=== PATIENT | male | born 2000 | race Caucasian/White ===

== ENCOUNTER 2021-09-25 02:39 | Emergency (ER) | payer OTHER ==
[2021-09-25 03:36] LABS: BLOOD UREA NITROGEN,BUN 24 mg/dL (7.0-18.0); CARBON DIOXIDE,CO2 27.2 mmol/L (21.0-32.0); CHLORIDE,CL 103 mmol/L (98-107); GLUCOSE RANDOM 103 mg/dL (74-106); LIPASE 80 U/L (73-393); POTASSIUM,K 4.5 mmol/L (3.5-5.1); SODIUM,NA 140 mmol/L (136-148)
[2021-09-25 04:03] VITALS: BP 147/77; PULSE 66
== END 2021-09-25 04:03 | disposition home or self-care (01) ==
LOC: MW.ED 02:39
DX: R55 Syncope and collapse (principal); Z88.0 Allergy status to penicillin
CPT/HCPCS: 36415; 71045; 71045-26; 80053; 83690; 83735; 84484; 85025; 93005; 99285-25

== ENCOUNTER 2024-07-19 13:07 | Emergency (ER) | payer SELFPAY ==
[2024-07-19] MEDS: diphenhydrAMINE 50 MG/ML SDV IVPUSH ONE (14:07)
[2024-07-19] MEDS: Sodium Chloride 0.9% 1,000 ML IV STA (14:07)
[2024-07-19] MEDS: Sodium Chloride 0.9% 2.5 ML Syringe FLUSH PRN (14:07)
[2024-07-19] MEDS: Sodium Chloride 0.9% 10 ML Syringe FLUSH PRN (14:07)
[2024-07-19] MEDS: Metoclopramide 10 MG/2 ML SDV IVPUSH ONE (14:07)
[2024-07-19] MEDS: Ondansetron 4 MG/2 ML SDV IVPUSH ONE ×2 (14:07→17:22)
[2024-07-19 14:10] LABS: BASOPHILS ABSOLUTE AUTO 0.04 K/uL (0.00-0.20); BASOPHILS PERCENT AUTO 0.5 % (0.0-1.0); EOSINOPHILS ABSOLUTE AUTO 0.25 K/uL (0.00-0.45); EOSINOPHILS PERCENT AUTO 2.8 % (0.0-6.0); HEMATOCRIT 46.4 % (42.0-52.0); HEMOGLOBIN 15.9 g/dL (14.0-18.0); IMMATURE GRAN ABSOLUTE AUTO 0.01 K/uL (0.00-0.05); IMMATURE GRAN PERCENT AUTO 0.1 % (0.0-0.4); LYMPHOCYTES ABSOLUTE AUTO 3.48 K/uL (1.00-4.80); LYMPHOCYTES PERCENT AUTO 39.2 % (24.0-44.0); MEAN CORPUSCULAR HEMOGLOBIN 29.5 pg (28.0-32.0); MEAN CORPUSCULAR HGB CONC 34.3 g/dL (32.0-36.0); MEAN CORPUSCULAR VOLUME 86.1 fL (83.0-99.0); MONOCYTES PERCENT AUTO 5.6 % (0.0-8.0); NEUTROPHILS ABSOLUTE AUTO 4.59 K/uL (1.80-7.70); NEUTROPHILS PERCENT AUTO 51.8 % (41.0-71.0); PLATELET COUNT,PLT 277 K/uL (150-400); RED BLOOD CELL COUNT 5.39 M/uL (4.52-5.90); WHITE BLOOD CELL COUNT,WBC 8.87 K/uL (3.9-11.3)
[2024-07-19] MEDS: Ketorolac 30 MG/ML SDV IVPUSH ONE (14:27)
[2024-07-19 14:49] LABS: A/G RATIO 1.3 (0.9-1.6); ALBUMIN 4.3 g/dL (3.4-5.0); BILIRUBIN TOTAL 0.6 mg/dL (0.2-1.0); CALCIUM 9.2 mg/dL (8.5-10.1); CARBON DIOXIDE,CO2 27.8 mmol/L (21.0-32.0); CREATININE 1.3 mg/dL (0.8-1.3); EST CRCL DRUG DOSING (CG) 96.17 mL/min; POTASSIUM,K 3.6 mmol/L (3.5-5.1); PROTEIN TOTAL,TP 7.7 g/dL (6.4-8.2)
[2024-07-19] MEDS: Iopamidol 755 MG/ML 500 ML Multipack Bottle IVPUSH STA (15:43)
[2024-07-19 18:52] VITALS: BP 113/62; PULSE 73
== END 2024-07-19 19:02 | disposition home or self-care (01) ==
LOC: MW.ED 13:07
DX: R07.9 Chest pain, unspecified (principal); R11.2 Nausea with vomiting, unspecified; R51.9 Headache, unspecified; Z88.0 Allergy status to penicillin; Z75.8 Other problems related to medical facilities and other health care
CPT/HCPCS: 36415; 70450; 70496; 70498; 80053; 82375; 83690; 84484; 85025; 93005; 96361; 96374; 96375; 96376; 99285; J1200; J1885; J2405; J2765; J3490; J7030; Q9967

== ENCOUNTER 2024-12-06 05:04 | Emergency (ER) | payer BC ==
[2024-12-06] MEDS: Benzocaine 20% Topical Spray UD MUCMEM ONE (05:18)
[2024-12-06] MEDS: Lidocaine 2% Viscous Solution 15 ML UD PO ONE (05:18)
[2024-12-06 06:21] VITALS: BP 150/100; PULSE 70
== END 2024-12-06 06:19 | disposition home or self-care (01) ==
LOC: MW.ED 05:04
DX: K08.89 Other specified disorders of teeth and supporting structures (principal); Z88.0 Allergy status to penicillin; Z79.899 Other long term (current) drug therapy; Z75.8 Other problems related to medical facilities and other health care
CPT/HCPCS: 99282; A9270; 99283

== ENCOUNTER 2025-08-15 16:34 | Emergency (ER) | payer BC ==
[2025-08-15] MEDS ORDERED: Sodium Chloride 0.9% 10 ML Syringe FLUSH PRN (17:19)
[2025-08-15] MEDS ORDERED: Sodium Chloride 0.9% 2.5 ML Syringe FLUSH PRN (17:19)
[2025-08-15 17:29] LABS: BASOPHILS ABSOLUTE AUTO 0.05 K/uL (0.00-0.20); BASOPHILS PERCENT AUTO 0.6 % (0.0-1.0); EOSINOPHILS ABSOLUTE AUTO 0.36 K/uL (0.00-0.45); EOSINOPHILS PERCENT AUTO 4.3 % (0.0-6.0); IMMATURE GRAN ABSOLUTE AUTO 0.02 K/uL (0.00-0.05); IMMATURE GRAN PERCENT AUTO 0.2 % (0.0-0.4); LYMPHOCYTES ABSOLUTE AUTO 2.36 K/uL (1.00-4.80); LYMPHOCYTES PERCENT AUTO 28.3 % (24.0-44.0); MEAN PLATELET VOLUME 9.1 fL (9.4-12.4); MONOCYTES ABSOLUTE AUTO 0.59 K/uL (0.00-0.80); MONOCYTES PERCENT AUTO 7.1 % (0.0-8.0); NEUTROPHILS ABSOLUTE AUTO 4.97 K/uL (1.80-7.70); NEUTROPHILS PERCENT AUTO 59.5 % (41.0-71.0); NRBC ABSOLUTE 0.00 K/uL (0.00-0.02); NRBC PERCENT 0.0 /100WBC (0.0-0.2); PLATELET COUNT,PLT 324 K/uL (150-400); RED BLOOD CELL COUNT 5.69 M/uL (4.52-5.90); WHITE BLOOD CELL COUNT,WBC 8.35 K/uL (3.9-11.3)
[2025-08-15] MEDS: Albuterol 0.083% 2.5 MG/3 ML Neb Soln NEB ONE (17:36)
[2025-08-15] MEDS: methylPREDNISolone Sodium Succinate 125 MG/2 ML SDV IVPUSH ONE (17:36)
[2025-08-15 17:57] LABS: A/G RATIO 1.1 (0.9-1.6); ALANINE AMINOTRANSFERASE,ALT 55.0 IU/L (14-63); ASPARTATE AMNIOTRANSFERASE,AST 31.0 IU/L (15-37); BILIRUBIN TOTAL 0.5 mg/dL (0.2-1.0); BLOOD UREA NITROGEN,BUN 11.0 mg/dL (7.0-18.0); CARBON DIOXIDE,CO2 25.8 mmol/L (21.0-32.0); CHLORIDE,CL 105.0 mmol/L (98-107); CREATININE 1.2 mg/dL (0.8-1.3); EST CRCL DRUG DOSING (CG) 103.29 mL/min; GLUCOSE RANDOM 105.0 mg/dL (74-106); POTASSIUM,K 4.0 mmol/L (3.5-5.1); PROTEIN TOTAL,TP 8.6 g/dL (6.4-8.2); SODIUM,NA 142.0 mmol/L (136-148)
[2025-08-15 18:00] LABS: ESTIMATED GFR 86.0 mL/min (>60)
[2025-08-15] MEDS: Iopamidol 755 MG/ML 500 ML Multipack Bottle IVPUSH STA (18:20)
[2025-08-15 19:16] VITALS: BP 151/80; PULSE 84
== END 2025-08-15 19:14 | disposition home or self-care (01) ==
LOC: MW.ED 16:34
DX: J98.4 Other disorders of lung (principal); Z88.0 Allergy status to penicillin; Z79.899 Other long term (current) drug therapy
CPT/HCPCS: 36415; 71046; 71260; 80053; 83605; 85025; 87428; 87651; 96374; 99285; J2919; J7030; J7613; Q9967; A9270-GY